=== PATIENT | male | born 1965 ===

== ENCOUNTER 2017-09-14 12:56 | Emergency (ER) | payer BC ==
[2017-09-14 12:56] VITALS: BMI 32.3
[2017-09-14 13:05] VITALS: RESP 16; TEMP 97.9; O2SAT 98
--- NOTE | 2017-09-14 13:30 | ED PDOC ---
Arrival/HPI - General Chief Complaint: ENT Problem Time Seen by Provider: 09/14/17 13:29 Historian: Patient - History of Present Illness Narrative History of Present Illness (Text): 09/14/17 13:30 A 52 year old male, whose past medical history includes hypertension, open heart surgery (15 years ago, currently on Plavix), presents to the emergency department complaining of painless nosebleed in left nare. Patient reports having past intermittent nosebleeds for 3 years. Patient denies any fever, cough , chills, nose-blowing, nasal digital rotation, or any other complaints at this time. Blood pressure is regulated. PMD: Dr. Blackburn Symptom Onset: Sudden Symptom Course: Unchanged Past Medical History - Provider Review Nursing Documentation Reviewed: Yes - Cardiac Hx Cardiac Disorders: Yes Hx Hypertension: Yes Other/Comment: open heart sugery 2002 - Pulmonary Hx Respiratory Disorders: No - Neurological Hx Neurological Disorder: No - HEENT Hx HEENT Disorder: No - Renal Hx Renal Disorder: No - Endocrine/Metabolic Hx Endocrine Disorders: No - Hematological/Oncological Hx Blood Disorders: No - Integumentary Hx Dermatological Disorder: No - Musculoskeletal/Rheumatological Hx Musculoskeletal Disorders: No - Gastrointestinal Hx Gastrointestinal Disorders: No - Genitourinary/Gynecological Hx Genitourinary Disorders: No - Psychiatric Hx Psychophysiologic Disorder: No Hx Substance Use: No - Surgical History Hx Open Heart Surgery: Yes Other/Comment: bypass 2013 - Anesthesia Hx Anesthesia: Yes Hx Anesthesia Reactions: No Hx Malignant Hyperthermia: No Family/Social History - Physician Review Nursing Documentation Reviewed: Yes Family/Social History: No Known Family HX Smoking Status: Former Smoker Hx Alcohol Use: No Hx Substance Use: No Allergies/Home Meds Allergies/Adverse Reactions: Allergies No Known Allergies Allergy (Verified 09/14/17 12:59) Home Medications: Home Meds Medication Instructions Recorded Confirmed Aspirin [Aspirin] 81 mg PO DAILY 06/09/15 09/14/17 Atorvastatin Calcium [Lipitor] 10 mg PO DAILY 06/09/15 09/14/17 Clopidogrel [Plavix] 75 mg PO DAILY 06/09/15 09/14/17 Telmisartan [Micardis] 20 mg PO DAILY 08/13/16 09/14/17 Ergocalciferol (Vitamin D2) 1 cap PO Q7D 04/10/18 04/10/18 [Vitamin D2] Albion-3/Dha/Epa/Fish Oil [Fish Oil 1 cap PO DAILY 09/14/17 09/14/17 Albion-3 EC 1,200 mg] Review of Systems - Physician Review All systems were reviewed & negative as marked: Yes - Review of Systems Constitutional: absent: Fevers, Night Sweats ENT: Epistaxis (left nare). absent: Other (no nasal digital rotation, nor any nose-blowing) Respiratory: absent: Cough Physical Exam Vital Signs Reviewed: Yes Vital Signs Temp Pulse Resp BP Pulse Ox 09/14/17 15:10 97.9 F 79 16 150/89 98 09/14/17 13:01 97.9 F 74 16 147/98 H 98 Temperature: Afebrile Blood Pressure: Normal Pulse: Regular Respiratory Rate: Normal Appearance: Positive for: Well-Appearing Pain Distress: None Mental Status: Positive for: Alert and Oriented X 3 - Systems Exam Nose (External): Present: Other (spotting of left nare) Nose (Internal): Present: Epistaxis (left nare spetal oozing of blood) Neck: Present: Normal Range of Motion (neck supple) Respiratory/Chest: Present: Clear to Auscultation, Good Air Exchange. No: Respiratory Distress, Accessory Muscle Use Cardiovascular: Present: Regular Rate and Rhythm, Normal S1, S2. No: Murmurs Abdomen: No: Tenderness, Distention, Peritoneal Signs Neurological: Present: GCS=15, CN II-XII Intact, Speech Normal. No: Other (non- focal deficits) Skin: Present: Warm, Dry, Normal Color. No: Rashes Psychiatric: Present: Alert, Oriented x 3, Normal Insight, Normal Concentration Medical Decision Making ED Course and Treatment: 09/14/17 13:33 Impression: 52 year old male with nose bleed to left nare. Physical exam shows left nare spotting and internal septal oozing. Plan: -- Cocaine 4% -- Reassess and disposition Progress Notes: 09/14/17 14:36 Placed cotton ball to left nare with Afrin nasal spray. Shortly afterwards bleeding restarted. Nasal packing removed and placed inflatable nasal packing to left nare. Currently in hemostasis. Patient will be observed for 30 minutes and if hemostasis persists, patient will be discharged. Patient told to discontinue Plavix for next 2 days. - Medication Orders Current Medication Orders: Discontinued Medications Alprazolam (Xanax) 0.25 mg PO STAT STA PRN Reason: Protocol Stop: 09/14/17 15:11 Last Admin: 09/14/17 15:23 Dose: 0.25 mg Oxymetazoline HCl (Afrin 0.05%) 5 ml NS STAT STA Stop: 09/14/17 14:03 Last Admin: 09/14/17 14:18 Dose: 5 ml - Scribe Statement The provider has reviewed the documentation as recorded by the Dustin Prasad Provider Scribe Attestation: All medical record entries made by the Dustin were at my direction and personally dictated by me. I have reviewed the chart and agree that the record accurately reflects my personal performance of the history, physical exam, medical decision making, and the department course for this patient. I have also personally directed, reviewed, and agree with the discharge instructions and disposition. Disposition/Present on Arrival - Present on Arrival Any Indicators Present on Arrival: No History of DVT/PE: No History of Uncontrolled Diabetes: No Urinary Catheter: No History of Decub. Ulcer: No History Surgical Site Infection Following: None - Disposition Have Diagnosis and Disposition been Completed?: Yes Diagnosis: Epistaxis not due to trauma Disposition: HOME/ ROUTINE Disposition Time: 19:42 Patient Plan: Discharge Condition: GOOD Discharge Instructions (ExitCare): Nosebleeds, Nosebleeds (DC) Print Language: TURKISH Prescriptions: ALPRAZolam [Xanax] 0.25 mg PO TID #6 tab Referrals: Manuel Blackburn MD [Primary Care Provider] - Follow up with primary Forms: DoubleRecall (Portuguese)
[2017-09-14] MEDS ORDERED: COCAINE TP ONE (13:33)
[2017-09-14] MEDS ORDERED: Phenylephrine 0.5% Nasal Spray (15 ml) NS STA (13:44)
[2017-09-14] MEDS ORDERED: Oxymetazoline 0.05% Nasal Spray (30 ml) NS STA (14:02)
[2017-09-14 15:45] VITALS: BP 150/89; PULSE 79
== END 2017-09-14 15:24 | disposition home or self-care (01) ==
LOC: ED 12:56
DX: R04.0 Epistaxis (principal)